=== PATIENT | female | born 2000 | race Two or more races ===

== ENCOUNTER → 2024-08-05 | Emergency (ER) | payer OTHER ==
[~2024-08-05] VITALS: Ht 157.5 cm; Wt 56.7 kg
[~2024-08-05] MED LIST: KETOROLAC TROMETHAMINE 60 MG VIAL IM ONE; KETOROLAC TROMETHAMINE 60 MG VIAL IM STA
== END | disposition home or self-care (01) ==
LOC: ER 11:42
DX: S39.82XA Other specified injuries of lower back, initial encounter (principal); W19.XXXA Unspecified fall, initial encounter; Y93.89 Activity, other specified; Y92.89 Other specified places as the place of occurrence of the external cause; Y99.8 Other external cause status; M54.50 Low back pain, unspecified
CPT/HCPCS: 72100; 96372; 99283; J1885

== ENCOUNTER 2025-02-03 11:49 | Emergency (ER) | payer OTHER ==
[~2025-02-03] VITALS: Ht 152.4 cm; Wt 59.0 kg
[~2025-02-03 11:49] MED LIST changes: -KETOROLAC TROMETHAMINE 60 MG VIAL IM ONE; -KETOROLAC TROMETHAMINE 60 MG VIAL IM STA; +MELOXICAM15 MG PO
[2025-02-03] MEDS ORDERED: KETOROLAC TROMETHAMINE 30 MG VIAL IM STA (13:59)
== END 2025-02-03 14:58 | disposition home or self-care (01) ==
LOC: ER 11:49
DX: G89.11 Acute pain due to trauma (principal); M54.2 Cervicalgia; M62.830 Muscle spasm of back; M54.9 Dorsalgia, unspecified
CPT/HCPCS: 72040; 72070; 72100; 96372; 99283; J1885